=== PATIENT | male | born 1940 | race Caucasian/White ===

== ENCOUNTER 2016-07-17 09:09 | Day surgery (SDC) | payer OTHER ==
[~2016-07-17] VITALS: Ht 167.6 cm; Wt 80.7 kg
[~2016-07-17 09:09] MED LIST: ADULT LOW DOSE81 M1 PO; AMBIEN10 MG; CYCLOBENZAPRINE10 MG PO; FENOFIBRATE160 M1 PO; HYDROCHLOROTHIA25 MG PO; K-DUR10 MEQ PO; LEVEMIR FL100 UNIT/1 SC; LEVO-T50 MCG PO; LIPITOR20 MG PO; LITE COAT ASPI325 M1 PO; Lopressor PO; MICROZIDE12.5 M1 PO; NABUMETONE750 M1 PO; NORVASC10 MG PO; NOVOLOG MI100 UNIT/M SC; NOVOLOG PE100 UNITS/ SC; NOVOLOG100 UNIT/3 SC; PRAVASTATIN SOD20 MG PO; SERTRALINE HCL100 MG PO; TRAZODONE HCL50 MG PO; XANAX1 MG PO
[2016-07-17 10:27] LABS: POINT-OF-CARE METER ID UU14174212
[2016-07-17 10:55] LABS: POINT-OF-CARE METER ID UU14174212
== END 2016-07-17 11:47 | disposition home or self-care (01) ==
LOC: PAIN 09:09 → SDC 09:45 → PAIN 11:47
PROVIDERS: Anesthesiology Pain Medicine
DX: M47.22 Other spondylosis with radiculopathy, cervical region (principal); M47.12 Other spondylosis with myelopathy, cervical region; Q76.49 Other congenital malformations of spine, not associated with scoliosis; M47.816 Spondylosis without myelopathy or radiculopathy, lumbar region; M99.81 Other biomechanical lesions of cervical region; J45.909 Unspecified asthma, uncomplicated; I11.0 Hypertensive heart disease with heart failure; I50.9 Heart failure, unspecified; E11.9 Type 2 diabetes mellitus without complications; E66.9 Obesity, unspecified; Z68.31 Body mass index [BMI] 31.0-31.9, adult; E03.9 Hypothyroidism, unspecified; E78.00 Pure hypercholesterolemia, unspecified; K21.9 Gastro-esophageal reflux disease without esophagitis; G47.30 Sleep apnea, unspecified; Z86.73 Personal history of transient ischemic attack (TIA), and cerebral infarction without residual deficits; E55.9 Vitamin D deficiency, unspecified; Z79.82 Long term (current) use of aspirin; Z79.4 Long term (current) use of insulin; Z79.891 Long term (current) use of opiate analgesic; Z79.899 Other long term (current) drug therapy
CPT/HCPCS: 82948; J1030; J2250; J3010

== ENCOUNTER 2016-08-30 10:04 | Day surgery (SDC) | payer OTHER ==
[~2016-08-30] VITALS: Ht 167.6 cm; Wt 80.7 kg
[~2016-08-30 10:04] MED LIST changes: +NEURONTIN600 MG PO; +PERCOCET 7.51 TABLET PO; +VENTOLIN HFA18 GM IH; +VITAMIN D31000 UNIT PO; +ZOLOFT100 MG PO
[2016-08-30 10:51] LABS: POINT-OF-CARE METER ID UU13113694
[2016-08-30 11:41] LABS: POINT-OF-CARE METER ID UU13113694
== END 2016-08-30 11:30 | disposition home or self-care (01) ==
LOC: PAIN 10:04 → SDC 10:45 → PAIN 10:45
PROVIDERS: Anesthesiology Pain Medicine
DX: M50.123 Cervical disc disorder at C6-C7 level with radiculopathy (principal); M47.26 Other spondylosis with radiculopathy, lumbar region; I50.9 Heart failure, unspecified; I11.0 Hypertensive heart disease with heart failure; E11.9 Type 2 diabetes mellitus without complications; E03.9 Hypothyroidism, unspecified; I25.2 Old myocardial infarction; G47.30 Sleep apnea, unspecified; J45.909 Unspecified asthma, uncomplicated; I25.10 Atherosclerotic heart disease of native coronary artery without angina pectoris; Z86.73 Personal history of transient ischemic attack (TIA), and cerebral infarction without residual deficits; Z79.82 Long term (current) use of aspirin; Z79.4 Long term (current) use of insulin; Z79.891 Long term (current) use of opiate analgesic
CPT/HCPCS: 82948; J1030; J3010

== ENCOUNTER 2017-03-30 22:41 | Inpatient (IN) | payer OTHER ==
[~2017-03-30] VITALS: Ht 167.6 cm; Wt 88.6 kg
[~2017-03-30 22:41] MED LIST changes: +ASPIR-LOW81 MG PO; -LEVO-T50 MCG PO; -LITE COAT ASPI325 M1 PO; +SYNTHROID50 MCG PO
[2017-03-30 23:23] LABS: HEMATOCRIT 43.3 % (38.0-50.0); HEMOGLOBIN 14.3 G/DL (12.5-16.6); MCH 27.3 PG (29.0-34.0); MCV 82.6 FL (86-99); PLATELET COUNT 287 K/uL (156-360); RBC DIS.WIDTH-CV 13.2 % (11.8-14.6); RBC DIS.WIDTH-SD 40.1 % (39-53); RED BLOOD COUNT 5.24 M/uL (4.00-5.50); WHITE BLOOD COUNT 10.7 K/uL (4.1-10.2)
[2017-03-30 23:32] LABS: CHLORIDE 100 mEq/L (99-109); POTASSIUM 3.5 mEq/L (3.7-5.4); SODIUM 140 mEq/L (136-147)
[2017-03-30 23:33] LABS: GLUCOSE 212 mg/dL (70-99)
[2017-03-30 23:37] LABS: GFR ESTIMATE (CALCULATED) > 59 mL/min/ (58.99-99999)
[2017-03-30 23:38] LABS: UREA NITROGEN (BUN) 18 mg/dL (9-23)
[2017-03-30 23:45] LABS: TROP-I INTERPRETATION NEGATIVE; TROPONIN-I 0.05 ng/mL (0.0-0.30)
[2017-03-31] MEDS ORDERED: TAMIFLU75 MG PO (00:55)
[2017-03-31] MEDS ORDERED: PAMELOR10 MG PO (00:56)
[2017-03-31] MEDS ORDERED: REVATIO20 MG PO (00:56)
[2017-03-31 04:38] VITALS: BP 157/86
[2017-03-31 06:45] LABS: TROP-I INTERPRETATION NEGATIVE; TROPONIN-I 0.07 ng/mL (0.0-0.30)
[2017-03-31 11:09] VITALS: BP 129/69
[2017-03-31 13:05] LABS: TROP-I INTERPRETATION NEGATIVE; TROPONIN-I 0.06 ng/mL (0.0-0.30)
[2017-03-31 15:09] VITALS: BP 111/68
[2017-03-31 19:37] VITALS: BP 131/65
[2017-04-01] VITALS (7 sets, daily range): BP systolic 111–143; BP diastolic 66–76
[2017-04-01 06:36] LABS: BASOPHIL (%) 0.3 % (0-1); EOSINOPHIL (%) 1.4 % (0-5); EOSINOPHIL COUNT 0.2 K/uL (0-0.3); HEMATOCRIT 42.6 % (38.0-50.0); HEMOGLOBIN 13.4 G/DL (12.5-16.6); IMMATURE GRANULOCYTE (%) 0.3 % (0.0-0.7); LYMPHOCYTE COUNT 1.7 K/uL (1.0-2.8); MCH 26.4 PG (29.0-34.0); MCHC 31.5 G/DL (30.0-36.0); MONOCYTE (%) 8.5 % (3-12); NEUTROPHIL (%) 74.5 % (45-76); NEUTROPHIL COUNT 8.6 K/uL (1.8-6.4); PLATELET COUNT 278 K/uL (156-360); RBC DIS.WIDTH-CV 13.6 % (11.8-14.6); RBC DIS.WIDTH-SD 41.7 % (39-53); RED BLOOD COUNT 5.07 M/uL (4.00-5.50); WHITE BLOOD COUNT 11.6 K/uL (4.1-10.2)
[2017-04-01 07:07] LABS: CHLORIDE 100 MEQ/L (99-109); CREATININE 1.2 MG/DL (0.6-1.3); GFR ESTIMATE (CALCULATED) > 59 mL/min/ (58.99-99999); MAGNESIUM 1.9 mg/dl (1.3-2.7); POTASSIUM 3.4 MEQ/L (3.7-5.4); SODIUM 144 MEQ/L (136-147); UREA NITROGEN (BUN) 25 mg/dL (9-23)
[2017-04-01 07:11] LABS: GLUCOSE 44 mg/dL (70-99)
[2017-04-02 07:14] LABS: CHLORIDE 104 MEQ/L (99-109); CREATININE 1.4 MG/DL (0.6-1.3); GFR ESTIMATE (CALCULATED) 52 mL/min/ (58.99-99999); POTASSIUM 3.5 MEQ/L (3.7-5.4); SODIUM 144 MEQ/L (136-147); UREA NITROGEN (BUN) 30 mg/dL (9-23)
[2017-04-02 07:19] LABS: GLUCOSE 50 mg/dL (70-99)
[2017-04-02 07:20] LABS: BASOPHIL (%) 0.8 % (0-1); BASOPHIL COUNT 0.1 K/uL (0-0.1); EOSINOPHIL (%) 4.1 % (0-5); EOSINOPHIL COUNT 0.3 K/uL (0-0.3); HEMATOCRIT 38.5 % (38.0-50.0); HEMOGLOBIN 12.3 G/DL (12.5-16.6); IMMATURE GRANULOCYTE (%) 0.5 % (0.0-0.7); LYMPHOCYTE (%) 29.5 % (15-42); LYMPHOCYTE COUNT 1.8 K/uL (1.0-2.8); MCH 27.2 PG (29.0-34.0); MCHC 31.9 G/DL (30.0-36.0); MCV 85.2 FL (86-99); MONOCYTE (%) 12.1 % (3-12); MONOCYTE COUNT 0.7 K/uL (0-0.8); NEUTROPHIL COUNT 3.2 K/uL (1.8-6.4); PLATELET COUNT 270 K/uL (156-360); RBC DIS.WIDTH-CV 13.6 % (11.8-14.6); RBC DIS.WIDTH-SD 42.3 % (39-53); RED BLOOD COUNT 4.52 M/uL (4.00-5.50)
[2017-04-02 08:50] VITALS: BP 126/70
[2017-04-02] MEDS ORDERED: TOPROL XL50 MG PO (11:00)
[2017-04-02] MEDS ORDERED: LOSARTAN POTASS50 MG PO (11:01)
[2017-04-02] MEDS ORDERED: SPIRONOLACTONE25 MG PO (11:01)
[2017-04-02] MEDS ORDERED: POTASSIUM CHLO20 ME2 PO (11:02)
[2017-04-02] MEDS ORDERED: LASIX40 MG PO (11:03)
[2017-04-02] MEDS ORDERED: CEFDINIR300 MG PO (11:23)
[2017-04-02] MEDS ORDERED: LEVEMIR FL100 UNIT/1 SC ×2 (11:31→11:32)
[2017-04-03] MEDS ORDERED: NOVOLOG PE100 UNITS/ SC (11:56)
== END 2017-04-02 13:29 | disposition home or self-care (01) | DRG 291 ==
LOC: EME 22:41 → EDOF 03-31 03:14 → 5SOUTH 03-31 03:14 → ENRESERV 03-31 03:18 → 5SOUTH 03-31 04:15
PROVIDERS: Emergency Medicine; Hospitalist; Physician Assistant; Student in an Organized Health Care Education/Training Program
DX: I11.0 Hypertensive heart disease with heart failure (principal); I50.43 Acute on chronic combined systolic (congestive) and diastolic (congestive) heart failure; I16.0 Hypertensive urgency; J18.9 Pneumonia, unspecified organism; J44.0 Chronic obstructive pulmonary disease with (acute) lower respiratory infection; N17.9 Acute kidney failure, unspecified; I25.10 Atherosclerotic heart disease of native coronary artery without angina pectoris; E11.65 Type 2 diabetes mellitus with hyperglycemia; E87.6 Hypokalemia; J98.11 Atelectasis; E78.00 Pure hypercholesterolemia, unspecified; F32.9 Major depressive disorder, single episode, unspecified; I35.9 Nonrheumatic aortic valve disorder, unspecified; E78.5 Hyperlipidemia, unspecified; E03.9 Hypothyroidism, unspecified; I25.2 Old myocardial infarction; G43.909 Migraine, unspecified, not intractable, without status migrainosus; Z95.5 Presence of coronary angioplasty implant and graft; Z96.653 Presence of artificial knee joint, bilateral; Z87.442 Personal history of urinary calculi; Z79.4 Long term (current) use of insulin; Z79.82 Long term (current) use of aspirin; Z82.49 Family history of ischemic heart disease and other diseases of the circulatory system
CPT/HCPCS: 71046; 71275; 80048; 82948; 83036; 83605; 83735; 83880; 84484; 85025; 85027; 87040; 87502; 93005; 93306; 94640; 94640 76; 94799; 99202; 99281; 99285; J0360; J0456; J0696; J1650; J1815; J1940

== ENCOUNTER 2017-04-03 00:33 | Inpatient (IN) | payer OTHER ==
[~2017-04-03] VITALS: Ht 167.6 cm; Wt 87.3 kg
[~2017-04-03 00:33] MED LIST changes: +CEFDINIR300 MG PO; +LASIX40 MG PO; +LOSARTAN POTASS50 MG PO; +PAMELOR10 MG PO; +POTASSIUM CHLO20 ME2 PO; +REVATIO20 MG PO; +SPIRONOLACTONE25 MG PO; +TAMIFLU75 MG PO; +TOPROL XL50 MG PO
[2017-04-03 01:11] LABS: BASOPHIL (%) 0.5 % (0-1); BASOPHIL COUNT 0.1 K/uL (0-0.1); EOSINOPHIL (%) 2.2 % (0-5); EOSINOPHIL COUNT 0.2 K/uL (0-0.3); HEMATOCRIT 42.4 % (38.0-50.0); HEMOGLOBIN 13.6 G/DL (12.5-16.6); IMMATURE GRANULOCYTE (%) 0.4 % (0.0-0.7); LYMPHOCYTE (%) 19.9 % (15-42); LYMPHOCYTE COUNT 2.2 K/uL (1.0-2.8); MCH 26.9 PG (29.0-34.0); MCHC 32.1 G/DL (30.0-36.0); MONOCYTE (%) 5.6 % (3-12); MONOCYTE COUNT 0.6 K/uL (0-0.8); NEUTROPHIL (%) 71.4 % (45-76); NEUTROPHIL COUNT 7.7 K/uL (1.8-6.4); PLATELET COUNT 329 K/uL (156-360); RBC DIS.WIDTH-CV 13.6 % (11.8-14.6); RBC DIS.WIDTH-SD 41.9 % (39-53); RED BLOOD COUNT 5.05 M/uL (4.00-5.50); WHITE BLOOD COUNT 10.8 K/uL (4.1-10.2)
[2017-04-03 01:19] LABS: CHLORIDE 104 mEq/L (99-109); SODIUM 140 mEq/L (136-147)
[2017-04-03 01:25] LABS: CREATININE 1.6 mg/dL (0.6-1.3); GFR ESTIMATE (CALCULATED) 45 mL/min/ (58.99-99999)
[2017-04-03 01:26] LABS: UREA NITROGEN (BUN) 44 mg/dL (9-23)
[2017-04-03 01:31] LABS: GLUCOSE 172 mg/dL (70-99); TROP-I INTERPRETATION NEGATIVE; TROPONIN-I 0.02 ng/mL (0.0-0.30)
[2017-04-03 01:32] LABS: POTASSIUM 5.1 mEq/L (3.7-5.4)
[2017-04-03 05:49] VITALS: BP 157/88
[2017-04-03 07:05] LABS: TROP-I INTERPRETATION NEGATIVE; TROPONIN-I 0.06 ng/mL (0.0-0.30)
[2017-04-03 07:13] VITALS: BP 141/78
[2017-04-03 08:45] LABS: BASE EXCESS 1.7 mEq/L (-3 to +3); BICARBONATE 27.7 mEq/L (22-26); CARBOXY HGB 2.4 % (0-5); METHEMOGLOBIN 1.3 % (0-1.5); PCO2 48 mm Hg (35-45); PO2 80 mm Hg (80-100); pH 7.37 (7.35-7.45)
[2017-04-03 08:46] LABS: COMMENTS - BLOOD GASES A+C+; DEVICE HFLNC; O2 FLOW 10 L/MIN; SITE RR; TOTAL RESP RATE 18 resp/min
[2017-04-03 09:17] LABS: BASOPHIL (%) 0.3 % (0-1); EOSINOPHIL (%) 0.4 % (0-5); EOSINOPHIL COUNT 0.1 K/uL (0-0.3); HEMATOCRIT 43.9 % (38.0-50.0); HEMOGLOBIN 13.6 G/DL (12.5-16.6); IMMATURE GRANULOCYTE (%) 0.3 % (0.0-0.7); LYMPHOCYTE (%) 11.3 % (15-42); LYMPHOCYTE COUNT 1.5 K/uL (1.0-2.8); MCH 26.5 PG (29.0-34.0); MCV 85.4 FL (86-99); MONOCYTE (%) 5.7 % (3-12); MONOCYTE COUNT 0.8 K/uL (0-0.8); PLATELET COUNT 357 K/uL (156-360); RBC DIS.WIDTH-CV 13.3 % (11.8-14.6); RBC DIS.WIDTH-SD 41.8 % (39-53); RED BLOOD COUNT 5.14 M/uL (4.00-5.50); WHITE BLOOD COUNT 13.4 K/uL (4.1-10.2)
[2017-04-03 09:44] LABS: ALBUMIN 3.7 g/dL (3.2-4.8); CHLORIDE 102 mEq/L (99-109); POTASSIUM 5.2 mEq/L (3.7-5.4); SODIUM 142 mEq/L (136-147)
[2017-04-03 09:45] LABS: MAGNESIUM 2.6 mg/dL (1.3-2.7)
[2017-04-03 09:47] LABS: TOTAL PROTEIN 7.1 g/dL (6.4-8.3)
[2017-04-03 09:48] LABS: GLUCOSE 108 mg/dL (70-99)
[2017-04-03 09:49] LABS: TOTAL BILIRUBIN 0.5 mg/dL (0.0-1.0)
[2017-04-03 09:50] LABS: ALKALINE PHOSPHATASE 54 IU/L (3-129)
[2017-04-03 09:51] LABS: CREATININE 1.6 mg/dL (0.6-1.3); GFR ESTIMATE (CALCULATED) 45 mL/min/ (58.99-99999)
[2017-04-03 09:52] LABS: AST (GOT) 26 IU/L (2-34); UREA NITROGEN (BUN) 48 mg/dL (9-23)
[2017-04-03 09:54] LABS: ALT (GPT) 21 IU/L (3-49)
[2017-04-03] MEDS ORDERED: NOVOLOG PE100 UNITS/ SC (11:56)
[2017-04-03 12:19] VITALS: BP 138/92
[2017-04-03 16:50] VITALS: BP 107/62
[2017-04-03 20:04] VITALS: BP 123/79
[2017-04-04] VITALS (7 sets, daily range): BP systolic 97–118; BP diastolic 59–69
[2017-04-04 06:48] LABS: HEMATOCRIT 41.8 % (38.0-50.0); MCH 26.4 PG (29.0-34.0); MCHC 31.1 G/DL (30.0-36.0); MCV 84.8 FL (86-99); PLATELET COUNT 363 K/uL (156-360); RBC DIS.WIDTH-CV 13.4 % (11.8-14.6); RBC DIS.WIDTH-SD 41.7 % (39-53); RED BLOOD COUNT 4.93 M/uL (4.00-5.50); WHITE BLOOD COUNT 9.1 K/uL (4.1-10.2)
[2017-04-04 07:11] LABS: CHLORIDE 103 MEQ/L (99-109); CREATININE 1.5 MG/DL (0.6-1.3); GFR ESTIMATE (CALCULATED) 48 mL/min/ (58.99-99999); MAGNESIUM 2.2 mg/dl (1.3-2.7); SODIUM 144 MEQ/L (136-147); UREA NITROGEN (BUN) 59 mg/dL (9-23)
[2017-04-04 07:14] LABS: GLUCOSE 42 mg/dL (70-99); POTASSIUM 3.7 MEQ/L (3.7-5.4)
[2017-04-05 00:17] VITALS: BP 106/64
[2017-04-05 03:48] VITALS: BP 113/65
[2017-04-05 06:09] LABS: HEMATOCRIT 36.5 % (38.0-50.0); HEMOGLOBIN 11.4 G/DL (12.5-16.6); MCH 26.3 PG (29.0-34.0); MCHC 31.2 G/DL (30.0-36.0); MCV 84.3 FL (86-99); PLATELET COUNT 308 K/uL (156-360); RBC DIS.WIDTH-CV 13.3 % (11.8-14.6); RBC DIS.WIDTH-SD 41.5 % (39-53); RED BLOOD COUNT 4.33 M/uL (4.00-5.50); WHITE BLOOD COUNT 6.4 K/uL (4.1-10.2)
[2017-04-05 06:33] LABS: CHLORIDE 104 MEQ/L (99-109); CREATININE 1.4 MG/DL (0.6-1.3); GFR ESTIMATE (CALCULATED) 52 mL/min/ (58.99-99999); POTASSIUM 3.9 MEQ/L (3.7-5.4); SODIUM 141 MEQ/L (136-147); UREA NITROGEN (BUN) 52 mg/dL (9-23)
[2017-04-05 06:34] LABS: GLUCOSE 166 mg/dL (70-99)
[2017-04-05 08:18] VITALS: BP 129/70
[2017-04-05 12:31] VITALS: BP 102/55
[2017-04-05 16:19] VITALS: BP 114/73
[2017-04-05 19:59] VITALS: BP 113/69
[2017-04-06 00:07] VITALS: BP 123/81
[2017-04-06 07:10] LABS: CHLORIDE 102 MEQ/L (99-109); CREATININE 1.5 MG/DL (0.6-1.3); GFR ESTIMATE (CALCULATED) 48 mL/min/ (58.99-99999); GLUCOSE 192 mg/dL (70-99); SODIUM 140 MEQ/L (136-147); UREA NITROGEN (BUN) 51 mg/dL (9-23)
[2017-04-06 07:15] LABS: POTASSIUM 4.7 MEQ/L (3.7-5.4)
[2017-04-06 08:00] VITALS: BP 144/85
[2017-04-06] MEDS ORDERED: FUROSEMIDE40 MG PO (08:30)
[2017-04-06] MEDS ORDERED: IMDUR60 MG PO (08:30)
[2017-04-06] MEDS ORDERED: LOSARTAN POTASS25 MG PO (08:30)
[2017-04-06 15:58] VITALS: BP 125/80
[2017-04-06] MEDS ORDERED: AERONEB GO NEB1 EACH MC (16:06)
[2017-04-06] MEDS ORDERED: DUONEB 2.5-0.5 M3 ML AEROSOL (16:06)
[2017-04-07 00:42] VITALS: BP 109/66
[2017-04-07 07:49] VITALS: BP 113/61
[2017-04-07 10:53] LABS: INTER. NORMALIZED RATIO 1.2
[2017-04-07 14:27] LABS: TYPE OF FLUID PLEURAL
[2017-04-07 15:13] LABS: APPEARANCE HAZY-YELLOW; BODY FLUID EOSINOPHILS 0 % (0-25); BODY FLUID RBC'S 4000 /MM^3 (0-100); BODY FLUID WBC'S 645 /MM^3 (0-500); COMMENT MODERATE MACROPHAGES AND MESOTHELIAL CELLS SEEN; MONONUCLEAR WBC'S 90 %; POLYNUCLEAR WBC'S 10 % (0-25)
[2017-04-07 15:19] LABS: BODY FLUID GLUCOSE 134 MG/DL; BODY FLUID LDH 74 IU/L
[2017-04-07 15:20] LABS: BODY FLUID PROTEIN < 3.0 G/DL
[2017-04-07 15:39] LABS: GLUCOSE 156 mg/dL (70-99); LACTATE DEHYDROGENASE 179 IU/L (20-246); TOTAL PROTEIN 6.9 G/DL (6.4-8.3)
[2017-04-08 00:10] VITALS: BP 123/72
[2017-04-08 08:00] VITALS: BP 117/69
[2017-04-08 10:48] LABS: CHLORIDE 102 MEQ/L (99-109); POTASSIUM 4.3 MEQ/L (3.7-5.4); SODIUM 144 MEQ/L (136-147)
[2017-04-08 10:54] LABS: CREATININE 1.5 MG/DL (0.6-1.3); GFR ESTIMATE (CALCULATED) 48 mL/min/ (58.99-99999); GLUCOSE 123 mg/dL (70-99); UREA NITROGEN (BUN) 47 mg/dL (9-23)
[2017-04-08 11:58] VITALS: BP 136/69
[2017-04-08 16:29] VITALS: BP 117/69
[2017-04-09 00:15] VITALS: BP 109/64
[2017-04-09 06:05] LABS: CHLORIDE 104 MEQ/L (99-109); CREATININE 1.4 MG/DL (0.6-1.3); GFR ESTIMATE (CALCULATED) 52 mL/min/ (58.99-99999); GLUCOSE 130 mg/dL (70-99); POTASSIUM 3.8 MEQ/L (3.7-5.4); SODIUM 144 MEQ/L (136-147); UREA NITROGEN (BUN) 42 mg/dL (9-23)
[2017-04-09 07:40] VITALS: BP 130/74
[2017-04-09 11:07] VITALS: BP 105/64
[2017-04-09] MEDS ORDERED: BENZONATATE100 MG PO (15:02)
[2017-04-09] MEDS ORDERED: BUMETANIDE1 MG PO (15:02)
[2017-04-09] MEDS ORDERED: ADVAIR HFA120 INHALA IH (15:02)
== END 2017-04-09 15:42 | disposition home health service (06) | DRG 291 ==
LOC: EME → EDSEX 00:33 → EME 00:33 → EDBD 00:33 → EDOF 02:47 → 5SOUTH 02:47 → ENRESERV 02:54 → 5SOUTH 05:09 → ENPENDDIS 04-09 12:17 → 5SOUTH 04-09 15:42
PROVIDERS: Emergency Medicine; Hospitalist; Internal Medicine Pulmonary Disease; Physician Assistant; Physician Assistant Medical
PROC: 0W9B3ZZ Drainage of Left Pleural Cavity, Percutaneous Approach (ICD-10-PCS; principal; 2017-04-09)
DX: I11.0 Hypertensive heart disease with heart failure (principal); I50.21 Acute systolic (congestive) heart failure; N17.9 Acute kidney failure, unspecified; J18.9 Pneumonia, unspecified organism; J44.0 Chronic obstructive pulmonary disease with (acute) lower respiratory infection; J96.01 Acute respiratory failure with hypoxia; E87.5 Hyperkalemia; J44.9 Chronic obstructive pulmonary disease, unspecified; I42.9 Cardiomyopathy, unspecified; F40.240 Claustrophobia; I16.0 Hypertensive urgency; E78.5 Hyperlipidemia, unspecified; J98.11 Atelectasis; N28.9 Disorder of kidney and ureter, unspecified; I25.10 Atherosclerotic heart disease of native coronary artery without angina pectoris; E66.9 Obesity, unspecified; E11.65 Type 2 diabetes mellitus with hyperglycemia; R09.02 Hypoxemia; Z79.4 Long term (current) use of insulin; Z79.82 Long term (current) use of aspirin; Z91.19 Patient's noncompliance with other medical treatment and regimen; Z95.1 Presence of aortocoronary bypass graft; Z68.31 Body mass index [BMI] 31.0-31.9, adult; Z96.653 Presence of artificial knee joint, bilateral; Z87.442 Personal history of urinary calculi; Z82.49 Family history of ischemic heart disease and other diseases of the circulatory system; Z79.899 Other long term (current) drug therapy
CPT/HCPCS: 36600; 71045; 71046; 76942; 80048; 80053; 82803; 82945; 82947; 82948; 83605; 83615; 83615 91; 83735; 83880; 84155; 84157; 84484; 85025; 85025 91; 85027; 85610; 87070; 87075; 87116; 87205; 87206; 88108; 88305; 89051; 93005; 94640; 94640 76; 94799; 99202; 99281; 99285; J1644; J1815; J1940